=== PATIENT | female | born 1970 | race Caucasian/White ===

== ENCOUNTER → 2019-06-04 09:25 | Outpatient (BNVA) | payer BC, SELFPAY | PROVIDERS: Family Provider Family Medicine; PCP Family Medicine; Visit Provider Family Medicine | DX: R22.1 Localized swelling, mass and lump, neck (principal) | CPT/HCPCS: 85025 ==

== ENCOUNTER 2019-06-22 13:43 | Outpatient (CLI) | payer BC, SELFPAY ==
--- NOTE | 2019-06-22 13:30 | US_ITS ---
WS: [id number] ULTRASOUND SOFT TISSUES LEFT neck HISTORY: neck mass COMPARISON: None available. TECHNIQUE: 2-D and color Doppler imaging is submitted. There are complex cystic masses in the LEFT neck to correspond to the palpable abnormalities. The lar gest measures 2.0 x 1.3 x 1.5 cm. There is some through transmission but there are also septations an d mildly thickened wall. No increased vascularity. Additional smaller cyst complex cyst. IMPRESSION: Cystic masses in the LEFT neck. These may be cystic lymph nodes. May also be associated with the sali vary glands although a connection is not identified. Recommend follow-up neck CT with IV contrast.
== END 2019-06-22 13:44 | disposition home or self-care (01) ==
LOC: RAD 13:48
PROVIDERS: Family Provider Family Medicine; PCP Family Medicine; Visit Provider Family Medicine
DX: R22.1 Localized swelling, mass and lump, neck (principal)
CPT/HCPCS: 76536

== ENCOUNTER 2019-07-02 08:40 | Outpatient (CLI) | payer BC, SELFPAY ==
--- NOTE | 2019-07-02 09:00 | CT_ITS ---
WS: [id number] CT NECK TECHNIQUE: Contrast-enhanced CT of the neck with coronal and sagittal reformatted images. CLINICAL INFORMATION: neck mass COMPARISON: CT and ultrasound June 22, 2019 DLP: 2298.[address] scans at [facility] use at least one of these dose optimization techniques: automat ed exposure control; mA and/or kV adjustment per patient size (includes targeted exams where dose is matched to clinical indication); or iterative reconstruction. FINDINGS: Palpable marker overlying the left parotid gland. Deep to the palpable marker is an intraparotid enha ncing lesion along the parotid tail which is new since 2011 measuring 1.5 x 1.2 x 2.1 CM. This lesion does not appear cystic and differential considerations include parotid adenoma or parotid neoplasm. Recommend ENT consultation for further evaluation. A few additional prominent intraparotid lymph nodes. Submandibular glands appear normal. Enlarged left level 2/3 cervical lymph nodes measur ing up to 11 mm. A few prominent right-sided cervical lymph nodes although not pathologically enlarge d. Normal tongue base. Normal posterior nasopharynx. Thyroid gland is normal. Normal lung apices. No ev idence of supraglottic or glottic mass. Straightening of the normal cervical lordosis. Minimal spondy litic changes cervical spine. Paranasal sinuses and mastoid air cells well aerated. CT/CT neck w con* [id number] IMPRESSION: 1. Enhancing superficial left parotid lesion along the parotid tail measuring 1.5 x 1.2 x 2.1 CM. This does not appear cystic on this examination. Differenti al considerations include parotid adenoma or parotid neoplasm. Less likely this represents an asymmetrically enlarged intraparotid lymph node. Recommend ENT c onsultation for further evaluation 2. Additional slightly enlarged left cervical lymph nodes at level 2 and level 3. 3. No evidence of supraglottic or glottic mass. 4. Normal thyroid gland. 5. Normal tongue base.
[2019-07-02] MEDS: iohexol 300 mg/mL 100 mL Btl IV (09:38)
== END 2019-07-02 08:41 | disposition home or self-care (01) ==
LOC: RADWPI 08:46
PROVIDERS: Family Provider Family Medicine; PCP Family Medicine; Visit Provider Family Medicine
DX: R22.1 Localized swelling, mass and lump, neck (principal)
CPT/HCPCS: 70491; Q9967

== ENCOUNTER → 2019-12-27 09:46 | Outpatient (BNVA) | payer BC, SELFPAY | PROVIDERS: Family Provider Family Medicine; PCP Family Medicine; Visit Provider Nurse Practitioner Family | DX: Z11.59 Encounter for screening for other viral diseases (principal); Z20.828 Contact with and (suspected) exposure to other viral communicable diseases; J06.9 Acute upper respiratory infection, unspecified | CPT/HCPCS: 87635 ==

== ENCOUNTER → 2020-07-16 09:55 | Outpatient (BNVA) | payer BC, SELFPAY | PROVIDERS: Family Provider Family Medicine; PCP Family Medicine; Visit Provider Family Medicine | DX: N93.8 Other specified abnormal uterine and vaginal bleeding (principal) | CPT/HCPCS: 85025 ==

== ENCOUNTER 2020-07-22 07:48 | Outpatient (CLI) | payer OTHER, SELFPAY ==
--- NOTE | 2020-07-22 08:00 | US_ITS ---
WS: [id number] ULTRASOUND PELVIS TECHNIQUE: Transabdominal and transvaginal. ULTRASOUND PELVIS TECHNIQUE: Transabdominal. CLINICAL INFORMATION: julian menopausal hemorrhage : No. FINDINGS: Uterus Orientation: Anteverted. Size: 9.5 cm x 6.4 cm x 5.1 cm. Masses: None. Cervix: 3.2 cm. Endometrium: Thickened Endometrium thickness: 2.3 cm. Adnexa: Left ovary not visualized Right ovary size: 2.5 cm x 1.1 cm x 1.0 cm. Right ovary volume: 1.5 ccm3. Free fluid: None. Other findings: None. US/US pelvic with transvaginal IMPRESSION: 1. Normal uterus. Thickened endometrium measuring 22.8 mm. This is thickened f or a perimenopausal patient and recommend further evaluation with hysteroscopy to exclude hyperplasia or neoplasia 2. Normal right ovary. Left ovary not visualized. 3. No fluid in the cul-de-sac. 4. No adnexal masses.
== END 2020-07-22 07:49 | disposition home or self-care (01) ==
PROVIDERS: PCP Family Medicine; Visit Provider Family Medicine
DX: N93.8 Other specified abnormal uterine and vaginal bleeding (principal)
CPT/HCPCS: 76830; 76856

== ENCOUNTER → 2020-07-28 15:20 | Outpatient (BNVA) | payer OTHER, SELFPAY | PROVIDERS: PCP Family Medicine; Visit Provider Obstetrics & Gynecology | DX: N93.8 Other specified abnormal uterine and vaginal bleeding (principal); Z12.4 Encounter for screening for malignant neoplasm of cervix | CPT/HCPCS: 88175; 88305 ==

== ENCOUNTER → 2021-04-16 11:08 | Outpatient (BNVA) | payer OTHER, SELFPAY | PROVIDERS: PCP Family Medicine; Visit Provider Family Medicine | DX: N93.8 Other specified abnormal uterine and vaginal bleeding (principal); I10 Essential (primary) hypertension; Z12.31 Encounter for screening mammogram for malignant neoplasm of breast; Z00.00 Encounter for general adult medical examination without abnormal findings; M72.2 Plantar fascial fibromatosis | CPT/HCPCS: 80053; 80061; 85025 ==

== ENCOUNTER 2021-07-14 14:18 | Outpatient (CLI) | payer OTHER, SELFPAY ==
--- NOTE | 2021-07-14 14:58 | MM_ITS ---
WS: [id number] BILATERAL 3D TOMOSYNTHESIS DIGITAL SCREENING MAMMOGRAPHY WITH CAD CLINICAL INFORMATION: SCREENING HISTORY: Screening mammogram. No current complaints. COMPARISON: 3 16,018 TECHNIQUE: Bilateral CC and MLO views. FINDINGS: The breasts are composed of heterogeneous fibroglandular density tissue, which can limit the detectio n of small underlying mass lesions. Stable dystrophic calcifications LEFT breast. No suspicious mass, asymmetry, calcifications, or architectural distortion. No evidence of malignancy. MM/[place] [address] IMPRESSION: BI-RADS: 2-Benign FOLLOW UP: 1 Year Follow-up Recommend return to annual screening mammography.
== END 2021-07-14 14:19 | disposition home or self-care (01) ==
LOC: RADSHAW 14:26
PROVIDERS: PCP Family Medicine; Visit Provider Family Medicine
DX: Z12.31 Encounter for screening mammogram for malignant neoplasm of breast (principal)
CPT/HCPCS: 77063; 77067

== ENCOUNTER → 2022-01-13 13:03 | Outpatient (BNVA) | payer OTHER, SELFPAY | PROVIDERS: PCP Family Medicine; Visit Provider Podiatrist Foot & Ankle Surgery | DX: G57.51 Tarsal tunnel syndrome, right lower limb (principal) | CPT/HCPCS: 73630 ==

== ENCOUNTER → 2022-07-19 10:56 | Outpatient (BNVA) | payer OTHER, SELFPAY | PROVIDERS: PCP Family Medicine; Visit Provider Family Medicine | DX: R07.89 Other chest pain (principal); I10 Essential (primary) hypertension; E03.9 Hypothyroidism, unspecified; N95.9 Unspecified menopausal and perimenopausal disorder | CPT/HCPCS: 80053; 84443; 84484; 85025 ==

== ENCOUNTER → 2024-03-29 09:51 | Outpatient (BNVA) | payer OTHER, SELFPAY | PROVIDERS: PCP Family Medicine; Visit Provider Family Medicine | DX: I10 Essential (primary) hypertension (principal); E03.9 Hypothyroidism, unspecified; R05.3 Chronic cough; E78.00 Pure hypercholesterolemia, unspecified | CPT/HCPCS: 80053; 80061; 84443; 85025 ==

== ENCOUNTER 2024-05-28 16:10 | Outpatient (CLI) | payer OTHER, SELFPAY ==
--- NOTE | 2024-05-28 16:15 | USR_ITS ---
PROCEDURE INFORMATION: Exam: US Pelvis, Complete, Non-Obstetric Exam date and time: 05/28/2024 4:14 PM Age: 53 years old Clinical indication: Menstruation abnormalities; Irregular menstruation; Additional info: Continued bleeding p evaluation 05/24/24, no pa needed for either codes, ref number [id number] TECHNIQUE: Imaging protocol: Transabdominal pelvic nonobstetric ultrasound. Complete exam. Real time ultrasound with image documentation. COMPARISON: US pelv w/transvag [id number] 07/22/2020 8:22 AM FINDINGS: Uterus: The uterus is enlarged and demonstrates heterogenous myometrial echotexture. Measurements of the uterus are 11.3 x 5.2 x 6.9 cm. Endometrial stripe is measured up to 1.9 cm and is within top-normal range for the patient's demographic. Nabothian cysts are noted. Right ovary/adnexa: The right ovary is not well visualized. Left ovary/adnexa: The left ovary is not well visualized. Intraperitoneal space: No intraperitoneal fluid. Urinary bladder: Normal. US/US pelv w/transvag [id number] IMPRESSION: 1. Enlarged and heterogenous uterus which can be seen in the setting of endometriosis versus the physiologic appearance of menstruation. Correlate clinically. Consider follow up with pelvic MRI as clinically indicated. 2. Although the endometrial stripe is thickened in the setting of a menstruating female consider follow up with hysteroscopy to exclude hyperplasia or neoplasia.
== END 2024-05-28 16:11 | disposition home or self-care (01) ==
LOC: RAD 16:10
PROVIDERS: PCP Family Medicine; Visit Provider Family Medicine
DX: N93.8 Other specified abnormal uterine and vaginal bleeding (principal); N95.0 Postmenopausal bleeding; R93.89 Abnormal findings on diagnostic imaging of other specified body structures; N88.8 Other specified noninflammatory disorders of cervix uteri
CPT/HCPCS: 76830; 76856; 80053; 85025

== ENCOUNTER 2024-05-31 08:49 | Day surgery (SDC) | payer OTHER, SELFPAY ==
[2024-05-31] VITALS (10 sets, daily range): BP systolic 124–153; BP diastolic 78–92; PULSE 65–87; RESP 16–17; TEMP 36.2–36.3; O2SAT 95–100; BMI 39.4
[2024-05-31] MEDS: scopolamine 1 mg PATCH 1 PATCH TRANSDERMA (09:16)
[2024-05-31] MEDS: sodium chloride 0.9% 1,000 ML 30 ML IV (09:16)
--- NOTE | 2024-05-31 09:17 | P.ANESASSM_ITS ---
Pre-Anesthetic Assessment Height/Weight: Height 1.68 m Weight 110.677 kg O2 Del Method Room Air 05/31/24 09:04 Preop Diagnosis: abnormal uterine bleeding Operation Date: 05/31/24 10:50 Proposed Procedures p Hysteroscopy w/ Endometrial Sampling 35704, N93.8(Not Applicable) - Kiel Cash MD s Poylpectomy(Not Applicable) - Kiel Cash MD Familial anesthetic complications: PONV Was Beta Shayne taken within 24 hours: N/A Was Clonidine taken within 24 hours: N/A Last intake: Intake Last Liquid Date 05/30/24 Last Liquid Time 21:00 Last Solid Date 05/30/24 Last Solid Time 21:00 Social No alcohol and No tobacco Exam alert, oriented x 3, clear to auscultation bilaterally and regular rate & rhythm Airway Mallampati: Class II Dentition: full CV/HEM Hypertension Anesthetic Plan ASA status: 2 Anesthesia: General Risk of > 500 ml blood loss (7ml/kg in children): No Medications/Allergies Home Medications ?Medication ?Instructions ?Recorded ?Confirmed ?Last Taken ?Type vitamins B1 B6 B12 oral liquid 1 ml PO DAILY 07/28/20 05/31/24 Unknown History ibuprofen 400 mg tablet (IBU) 400 mg PO TID 09/23/21 0 05/31/24 Unknown History hydrochlorothiazide 25 mg tablet 25 mg PO DAILY #90 ta bs 11/22/23 05/31/24 05/30/24 Rx medroxyprogesterone 10 mg tablet 10 mg PO DAILY 10 day s #10 tabs 05/24/24 05/31/24 05/30/24 Rx ferrous sulfate 325 mg (65 mg 325 mg PO DAILY 05/31/24 05/31/24 05/30/24 History iron) tablet (iron) Allergies Allergy/AdvReac Type Severity Reaction Status Date / Time No Known Allergies Allergy Verified 05/30/24 13:50 [facility] Anesthesia Medical History Tension headache, chronic Family History Sister Anesthesia complication Hyperlipidemia Hypertension Thyroid disease Ovarian cyst Father Anesthesia complication Cancer brain cancer Hypertension Stroke Family/Other Cancer Paternal uncle Hyperlipidemia Maternal and Paternal Aunts and Uncles Hypertension Maternal and Paternal Aunts and Uncles Mother Chronic kidney disease (CKD) Grandmother Stroke Paternal Denies family history of Diabetes CAD (coronary artery disease) Clotting disorder Bleeding disorder Social History Smoking and tobacco/nicotine status: never used tobacco/nicotine Alcohol intake: never Substance/Drug Use: never Female Reproductive History Date of last menstrual period: 05/31/24 Data Anesthesia Cardiac Studies: No Data to Display
--- NOTE | 2024-05-31 09:49 | W.PM.OPSUD ---
Surgery/Procedure H&P Update DATE OF PROCEDURE: May 31, 2024 DATE H&P PERFORMED: 05/30/24 H&P UPDATE INFORMATION: I have reviewed H&P completed within last 30 days, I have examined patient prior to procedure and No changes to prior documentation PREOP DIAGNOSIS: abnormal uterine bleeding PLANNED PROCEDURE: Operation Date: 05/31/24 10:50 Proposed Procedures p Hysteroscopy w/ Endometrial Sampling 28019, N93.8(Not Applicable) - Kiel Cash MD s Poylpectomy(Not Applicable) - Kiel Cash MD
--- NOTE | 2024-05-31 10:45 | P.OP_ITS ---
Operative Report Date of procedure: May 31, 2024 Pre-op diagnosis: abnormal uterine bleeding Post-op diagnosis: same Post-op findings: normal endometrial cavity No polyps / fibroids moderate endometrial tissue Procedure done: hysteroscopy Curettage of uterus Implants: none Specimens removed/disposition: endometrial curettings, sent to pathology Surgeon: Kiel Cash MD Anesthesia: MAC Estimated blood loss (mL): 0 Complications: none Findings: normal endometrial cavity No polyps / fibroids moderate endometrial tissue Condition: stable Disposition: PACU Brief History: 53 y.o. with abnormal uterine bleeding Procedure: Informed consent signed. Patient was taken to the operating room. Anesthesia was induced. Patient was placed in dorsolithotomy position, prepped and draped for hysteroscopy. A bivalve speculum was placed in the vagina. The anterior lip of the cervix was grasped with a sharp-toothed tenaculum. The cervix was serially dilated with Hegar dilators. . A hysteroscope was placed into the endometrial cavity. The endometrial cavity was seen to be normal. There were no polyps or fibroids. T here was a moderate amount of endometrial tissue. The hysteroscope was then removed. Endometrial curettage was done with a sharp curette. Endometrial tissue was sent to pathology. The sharp-toothed tenaculum was removed. There was no bleeding from the endometrial cavity or cervix. The patient was then placed supine and awakened and taken to the PACU. Postop condition: stable EBL: none Sponge and instruments counts were normal x 2 Complications: none
--- NOTE | 2024-05-31 11:15 | SUR.PHASEII ---
Patient states she has been feeling some shortness of breath since waking up in pacu. Her current O2 is 100% and HR 65. She states she has been feeling this way for a while due to her anemia and had labs drawn 05/28/24 resulting with 10.9 hgb. She states she does not have any chest pain.
[2024-05-31 12:06] LABS: Hematocrit 29.1 % (36-47)
--- NOTE | 2024-05-31 12:28 | ECG_ITS ---
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 Measurements Intervals [place] Rate: 74 P: 57 TX: 188 QRS: 20 QRSD: 97 T: -17 QT: 387 QTc: 432 Interpretive Statements SINUS RHYTHM NONSPECIFIC T-WAVE ABNORMALITY Compared to ECG 08/09/2015 00:34:21 T-wave abnormality now present Electronically Signed On 06-01-2024 19:23:28 CDT by Marcelo Tijerina M.D. [email or web address] [email or web address]
--- NOTE | 2024-05-31 12:54 | ANE.PACU2 ---
Inpatient post-anesthesia follow up: Airway intact: Yes Vital signs: Temperature 97.2 F Pulse Rate 76 Respiratory Rate 17 Blood Pressure 124/78 Pulse Oximetry 98 Oxygen Delivery Me thod Room Air Oxygen Flow Rate Fraction of Inspir ed Oxygen Hydration adequate: Yes Nausea and vomiting: No Pain level: 1 Mental status: Baseline Additional Comments: Patient satting 100% on room air in no distress, but relays feeling short of breath. States this has been going on since before surgery and she's attributed it to anemia. No chest pain or other symptoms. EKG unremarkable. States she feels ready to go home.
--- NOTE | 2024-05-31 13:07 | SUR.PHASEII ---
Shortness of breath was reported to Dr. Cash by this nurse. He ordered another h&h to be drawn. It was drawn and resulted at 9.4. He came to see patient with Dr. Treadwell. EKG ordered by Dr. Treadwell. It came back NSR. Patients VS remained stable and WNL. Patient ok to d/c per Dr. Treadwell and Dr. Cash. Patient stated she was ready to go home. Advised her to return if she had worsening shortness of breath.
== END 2024-05-31 12:53 | disposition home or self-care (01) ==
PROVIDERS: PCP Family Medicine; Visit Provider Obstetrics & Gynecology
PROC: 0UJD8ZZ Inspection of Uterus and Cervix, Via Natural or Artificial Opening Endoscopic (ICD-10-PCS; CPT 58555; principal; 2024-05-31 10:40)
DX: N85.8 Other specified noninflammatory disorders of uterus (principal); N93.8 Other specified abnormal uterine and vaginal bleeding; I10 Essential (primary) hypertension; E78.5 Hyperlipidemia, unspecified; Z79.899 Other long term (current) drug therapy
CPT/HCPCS: 58558; 36415; 85014; 85018; 88305; 93005; J1100; J2250; J2405; J2704; J3010; J3490; J7030; J9999

== ENCOUNTER 2024-06-04 14:56 | Emergency (ER) | payer OTHER, SELFPAY ==
[2024-06-04 15:01] VITALS: BP 135/95; PULSE 103; TEMP 36.9; O2SAT 100; BMI 39.0
--- NOTE | 2024-06-04 15:14 | ECG_ITS ---
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: : 1970 Requested By: Sonny Ziegler Order Number: [id number] Reading MD: PSAQUALE UMANA Measurements Intervals [place] Rate: 94 P: 39 [place]: 157 QRS: 10 QRSD: 96 T: 1 QT: 340 QTc: 427 Interpretive Statements SINUS RHYTHM MINIMAL ST DEPRESSION [0.025+ mV ST DEPRESSION] INTERPRETATION BASED ON A DEFAULT AGE OF 40 YEARS Compared to ECG 05/31/2024 12:28:20 ST (T wave) deviation now present T-wave abnormality no longer present Electronically Signed On 06-04-2024 18:06:45 CDT by PASQUALE UMANA [id number]
--- NOTE | 2024-06-04 15:14 | XRR_ITS ---
PROCEDURE INFORMATION: Exam: XR Chest Exam date and time: 06/04/2024 3:29 PM Age: 53 years old Clinical indication: Shortness of breath; Additional info: SOB TECHNIQUE: Imaging protocol: Radiologic exam of the chest. Views: 1 view. COMPARISON: CT neck w con* [id number] 07/02/2019 9:36 AM FINDINGS: Lungs: Lungs are clear. Pleural spaces: There is no pleural effusion or pneumothorax. Heart/Mediastinum: Cardiomediastinal contours are unremarkable. Bones/joints: Bones are unremarkable. XR/XR chest 1V portable [id number] IMPRESSION: No acute findings.
--- NOTE | 2024-06-04 15:15 | CTR_ITS ---
PROCEDURE INFORMATION: Exam: CTA Chest With Contrast Exam date and time: 06/04/2024 3:34 PM Age: 53 years old Clinical indication: Shortness of breath; Additional info: SOB TECHNIQUE: Imaging protocol: Computed tomographic angiography of the chest with contrast. Exam focused on the arteries. 3D rendering (Not supervised by radiologist): MIP and/or 3D reconstructed images were created by the technologist. Radiation optimization: All CT scans at this facility use at least one of these dose optimization techniques: automated exposure control; mA and/or kV adjustment per patient size (includes targeted exams where dose is matched to clinical indication); or iterative reconstruction. Contrast material: OMNI 350; Contrast volume: 100 ml; Contrast route: INTRAVENOUS (IV); COMPARISON: CR XR chest 1V portable [id number] 06/04/2024 3:29 PM RADIATION DOSE METRICS: Total DLP (mGy-cm): 363.4 FINDINGS: Pulmonary arteries: The pulmonary arteries are adequately opacified for evaluation to the subsegmental level. There is no filling defect to suggest embolism. Aorta: The aorta is unremarkable. There is no aneurysm. Lungs: There is no consolidation. Pleural spaces: There is no pleural effusion or pneumothorax. Heart: Heart size is normal. There is no pericardial effusion. Lymph nodes: There is no mediastinal or hilar lymphadenopathy. Diaphragm: There is a small sliding-type hiatal hernia. Liver: There is diffuse low-attenuation of the liver relative to the spleen consistent with fatty infiltration. Bones/joints: Bones are unremarkable. Soft tissues: The extrathoracic soft tissues are unremarkable. CT/CT angio chest PE protcl [id number] IMPRESSION: 1. No pulmonary embolism. 2. Severe hepatic steatosis.
--- NOTE | 2024-06-04 15:15 | ED_ITS ---
HPI - SOB/Dyspnea 2 General: Chief Complaint: Shortness of Breath/Dyspnea Stated Complaint: MARKIE Torres Time Seen by Provider: 06/04/24 15:12 Source: patient Mode of arrival: ambulatory Limitations: no limitations History of Present Illness: HPI Narrative: 53-year-old female states that she has b een feeling short of breath over the last 2 to 3 weeks. She states she had a D&C last week and her dyspnea has been worsening. She denies any cough or fever she has no history of COPD or CHF she denies any chest pain. Associated symptoms: Deny abdominal pain, chest pain, fever(s), nausea or vomiting Related Data Home Medications ?Medication ?Instructions ?Recorded ?Confirmed vitamins B1 B6 B12 oral liquid 1 ml PO DAILY 07/28/20 06/04/24 ibuprofen 400 mg tablet (IBU) 400 mg PO TID 09/23/21 0 06/04/24 ferrous sulfate 325 mg (65 mg 325 mg PO DAILY 05/31/24 06/04/24 iron) tablet (iron) losartan 50 mg tablet 50 mg PO DAILY 06/04/2405/19 Previous Rx's ?Medication ?Instructions ?Recorded hydrochlorothiazide 25 mg tablet 25 mg PO DAILY #90 ta bs 11/22/23 norethindrone 1.5 mg-ethinyl 1 tab PO DAILY #84 tabs 0 05/31/24 estradiol 30 mcg(21)/iron 75 mg(7) tablet (Junel FE .08/17 (28)) Allergies Allergy/AdvReac Type Severity Reaction Status Date / Time No Known Allergies Allergy Verified 06/04/24 14:27 Review of Systems 2 Const: Denies: fever(s), chills, body aches or change in appetite ENMT: Denies: throat pain or dental pain Card: Denies: chest pain Resp: Reports: dyspnea GI: Denies: abdominal pain, nausea, vomiting or diarrhea Musc: Denies: neck pain or back pain Skin/Breast: Denies: rash Neuro: Denies: headache(s) PFSH ED 2 PFSH: Medical History Tension headache, chronic Family History Sister Anesthesia complication Hyperlipidemia Hypertension Thyroid disease Ovarian cyst Father Anesthesia complication Cancer brain cancer Hypertension Stroke Family/Other Cancer Paternal uncle Hyperlipidemia Maternal and Paternal Aunts and Uncles Hypertension Maternal and Paternal Aunts and Uncles Mother Chronic kidney disease (CKD) Grandmother Stroke Paternal Denies family history of Diabetes CAD (coronary artery disease) Clotting disorder Bleeding disorder Social History Smoking and tobacco/nicotine status: never used tobacco/nicotine Alcohol intake: never Substance/Drug Use: never Physical Exam 2 Const: COMMON NORMALS: no acute distress, patient oriented x3 and healthy appearing HENMT: COMMON NORMALS: normocephalic and atraumatic HEAD & SCALP: n ormocephalic and atraumatic Eye: COMMON NORMALS: conjunctivae normal CONJUNCTIVA: Yes conjunctivae normal Neck/C-Spine: COMMON NORMALS: full ROM and supple Chest: COMMONS NORMALS: normal inspection of the chest Resp: COMMON NORMALS: normal respiratory effort, No retractions, No use of accessory muscles and clear to auscultation bilaterally AUSCULTATION: clear to auscultation bilaterally Cardio: COMMON NORMALS: regular rate, regular rhythm and No murmurs present (Cardio) RATE: regular rate RHYTHM: regular rhythm Extremity: COMMON NORMALS: normal to inspection and full ROM Neuro: COMMON NORMALS: patient oriented x3, moves all extremities and no focal motor deficits Psych: COMMON NORMALS: mental status grossly normal, Normal thought process present and cooperative THOUGHT PROCESS: Normal thought process present Skin: COMMON NORMALS: no rashes or lesions noted and no wounds GENERAL SKIN EXAM: no rashes or lesions noted Course 2 Vital Signs: Vital signs: Vital Signs Temperature 98.5 F 06/04/24 15:01 Pulse Rate 88 06/04/24 15:54 Respiratory Rate 19 H 06/04/24 15:54 Blood Pressure 125/74 06/04/24 15:54 Pulse Oximetry 100 06/04/24 15:54 Oxygen Delivery Me thod Room Air 06/04/24 15:54 MDM - SOB/Dyspnea Medical Decision Making Patient presents here with shortness of breath she has been well-appearing here in no distress pulse ox has been normal imaging blood works normal no signs of cardiac cause no signs of pulmonary embolism or pneumonia she stable for discharge follow-up with PCP return if worsening. Medical Records I reviewed the patient's medical records. Lab Data I reviewed the patient's lab results. 06/04/24 15:19 06/04/24 15:19 Labs/Radiology: Radiology Impressions Chest X-Ray 06/04/24 15:14 IMPRESSION: No acute findings. Chest CTA 06/04/24 15:15 IMPRESSION: 1. No pulmonary embolism. 2. Severe hepatic steatosis. Laboratory Results WBC 7.33 10^3/uL (3.29-11.43) 06/04/24 15:19 RBC 3.50 10^6/uL (3.85-5.65) L 06/04/24 15:19 Hgb 10.40 g/dL (11.27-16.99) L 06/04/24 15:19 Hct 32.0 % (36-47) L 06/04/24 15:19 MCV 91.4 fl (85-98) 06/04/24 15:19 MCH 29.7 pg (27-33) 06/04/24 15:19 MCHC 32.5 g/dL (30-55) 06/04/24 15:19 RDW 14.4 % (12.1-15.1) 06/04/24 15:19 Plt Count 328 10^3/cmm (157-399) 06/04/24 15:19 MPV 11.2 fL (7.4-10.4) H 06/04/24 15:19 Neut % (Auto) 71.9 % 06/04/24 15:19 Lymph % (Auto) 18.3 % 06/04/24 15:19 Carver % (Auto) 7.2 % 06/04/24 15:19 Eos % (Auto) 1.5 % 06/04/24 15:19 Baso % (Auto) 0.7 % 06/04/24 15:19 Neut # (Auto) 5.27 10^3/uL (1.8-7.7) 06/04/24 15:19 Lymph # (Auto) 1.3 10^3/uL (0.8-4.8) 06/04/24 15:19 Carver # (Auto) 0.5 10^3/uL (0.2-0.9) 06/04/24 15:19 Eos # (Auto) 0.1 10^3/uL (0.0-0.8) 06/04/24 15:19 Baso # (Auto) 0.1 10^3/uL (0.0-0.1) 06/04/24 15:19 Nucleated RBC % (auto) 0 % 06/04/24 15: Nucleated RBCs # 0.0 /100WBC 06/04/24 15:19 PT 11.80 SECONDS (12.1-14.9) L 06/04/24 15:19 INR 0.81 (0.8-1.2) 06/04/24 15:19 Sodium 139 mmol/L (136-145) 06/04/24 15:19 Potassium 3.7 mmol/L (3.5-5.1) 06/04/24 15:19 Chloride 102 mmol/L (98-107) 06/04/24 15:19 Carbon Dioxide 26 mmol/L (22-29) 06/04/24 15:19 Anion Gap 14.7 (5-19) 06/04/24 15:19 BUN 9 mg/dL (6-20) 06/04/24 15:19 Creatinine 0.9 mg/dL (0.5-0.9) 06/04/24 15:19 GFR Calculation 65.5 mL/min (90-130) L 06/04/24 15:19 Glucose 155 mg/dL (65-115) H 06/04/24 15:19 Calculated Osmolality 290 mOsm/kg (285-295) 06/04/24 15:19 Calcium 9.3 mg/dL (8.5-10.5) 06/04/24 15:19 Total Bilirubin 0.2 mg/dL (0.15-1.2) 06/04/24 15:19 AST 21 U/L (0-32) 06/04/24 15:19 ALT 26 U/L (0-33) 06/04/24 15:19 Alkaline Phosphatase 64 U/L (35-105) 06/04/24 15:19 Troponin T Baseline < 6 ng/L (0-10) 06/04/24 15:19 NT-Pro-B Natriuret Pep 55 pg/mL (0-125) 06/04/24 15:19 Total Protein 7.1 g/dL (6.6-8.7) 06/04/24 15:19 Albumin 4.5 g/dL (3.5-5.2) 06/04/24 15:19 Globulin 2.6 g/dL (1.3-4.6) 06/04/24 15:19 Influenza A (PCR) Negative (Negative) 06/04/24 15:50 Influenza Type B (PCR) Negative (Negative) 06/04/24 15:50 RSV (PCR) Negative (Negative) 06/04/24 15:50 SARS-CoV-2 (PCR) Negative (Negative) 06/04/24 15:50 All radiology interpretation(s) finalized by discharge Discharge Plan Discharge Patient Disposition: Home Clinical Impression: Shortness of breath Condition: Stable Prescriptions: No Action vitamins B1 B6 B12 Liquid 1 ml PO DAILY ibuprofen [IBU] 400 mg tablet 400 mg PO TID hydrochlorothiazide 25 mg tablet 25 mg PO DAILY Qty: 90 3RF losartan 50 mg tablet 50 mg PO DAILY ferrous sulfate [iron] 325 mg (65 mg iron) Tablet 325 mg PO DAILY norethindrone-e.estradiol-iron [Junel FE 1.5/30 (28)] 1.5 mg-30 mcg (21)/75 mg (7) tablet 1 tab PO DAILY Qty: 84 1RF Discharge Orders: Discharge ED (Routine); Ordered 06/04/24 Ordered By: Sonny Ziegler Referrals: Sam Bean MD [Primary Care Provider] - 4-7 days Discharge Diet: Advance as tolerated Discharge Activity: Resume usual activity Patient Instructions: Shortness of Breath (ED) Print Language: Barbadian Coding Level of Care Code ED Senior Design Engineer for Zack Gaffney
[2024-06-04] MEDS: iohexol 350 mg/mL 500 mL Btl (per mL) IV (15:46)
[2024-06-04 15:50] LABS: Basophils # 0.1 10^3/uL (0.0-0.1); Basophils % 0.7 %; Eosinophils # 0.1 10^3/uL (0.0-0.8); Eosinophils % 1.5 %; Lymphocytes # 1.3 10^3/uL (0.8-4.8); Lymphocytes % 18.3 %; Mean Corpuscular HGB Conc 32.5 g/dL (30-55); Mean Corpuscular Hemoglobin 29.7 pg (27-33); Mean Corpuscular Volume 91.4 fl (85-98); Mean Platelet Volume 11.2 fL (7.4-10.4); Monocytes # 0.5 10^3/uL (0.2-0.9); Monocytes % 7.2 %; Neutrophils # 5.27 10^3/uL (1.8-7.7); Neutrophils % 71.9 %; Nucleated Red Blood Cells % 0 %; Platelet Count 328 10^3/cmm (157-399); Red Cell Distribution Width 14.4 % (12.1-15.1); White Blood Count 7.33 10^3/uL (3.29-11.43)
[2024-06-04 15:54] VITALS: BP 125/74; PULSE 88; RESP 19; O2SAT 100
[2024-06-04 16:02] LABS: INR 0.81 (0.8-1.2)
[2024-06-04 16:13] LABS: Slide Review Slide Review Perform; Troponin(5th) Baseline < 6 ng/L (0-10)
[2024-06-04 16:31] LABS: Alanine Aminotransferase 26 U/L (0-33); Albumin Level 4.5 g/dL (3.5-5.2); Alkaline Phosphatase 64 U/L (35-105); Anion Gap 14.7 (5-19); Aspartate Amino Transferase 21 U/L (0-32); Blood Urea Nitrogen 9 mg/dL (6-20); Calcium 9.3 mg/dL (8.5-10.5); Carbon Dioxide 26 mmol/L (22-29); Chloride 102 mmol/L (98-107); Creatinine Clr Calc Pharmacy 90.7115; Globulin 2.6 g/dL (1.3-4.6); Glomerular Filtration Rate 65.5 mL/min (90-130); Glucose 155 mg/dL (65-115); NT Pro B Type Natriuretic Pept 55 pg/mL (0-125); Osmolality Calculated 290 mOsm/kg (285-295); Potassium 3.7 mmol/L (3.5-5.1); Sodium 139 mmol/L (136-145); Total Bilirubin 0.2 mg/dL (0.15-1.2); Total Protein 7.1 g/dL (6.6-8.7)
[2024-06-04 16:34] LABS: Influenza A NEGATIVE (Negative); Influenza B NEGATIVE (Negative); Respiratory Syncytial Virus Ce NEGATIVE (Negative); SARS-CoV-2 PCR NEGATIVE (Negative)
[2024-06-04 17:03] VITALS: BP 114/72; PULSE 78; O2SAT 99
== END 2024-06-04 17:07 | disposition home or self-care (01) ==
PROVIDERS: Family Medicine; Emergency Provider Emergency Medicine; PCP Family Medicine
DX: R06.02 Shortness of breath (principal); Z11.52 Encounter for screening for COVID-19
CPT/HCPCS: 71045; 71275; 80053; 83880; 84484; 85025; 85610; 87637; 93005; 99285

== ENCOUNTER 2024-06-11 08:32 | Emergency (ER) | payer OTHER, SELFPAY ==
[2024-06-11 08:38] VITALS: BP 152/89; PULSE 85; RESP 19; TEMP 36.4; O2SAT 100; BMI 38.7
--- NOTE | 2024-06-11 08:42 | XR_ITS ---
WS: [id number] Exam: XR chest 1V portable [id number] Date/Time of Exam: 06/11/2024 9:00 AM Reason For Exam: dyspnea/cough Comparison 06/04/2024. The lungs are fully inflated and clear. Normal cardiomediastinal silhouette and regional bony elements. No pleural effusion. XR/XR chest 1V portable [id number] IMPRESSION: 1. Negative chest.
--- NOTE | 2024-06-11 08:43 | ECG_ITS ---
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 Measurements Intervals [place] Rate: 86 P: 60 [place]: 177 QRS: 45 QRSD: 94 T: 31 QT: 362 QTc: 435 Interpretive Statements SINUS RHYTHM NONSPECIFIC T-WAVE ABNORMALITY INTERPRETATION BASED ON A DEFAULT AGE OF 40 YEARS Compared to ECG 06/04/2024 15:05:36 T-wave abnormality now present ST (T wave) deviation no longer present Electronically Signed On 06-11-2024 21:02:23 CDT by Lolly Adams M.D. [id number]
--- NOTE | 2024-06-11 08:57 | ED_ITS ---
HPI - Chest Pain 2 General: Chief Complaint: Chest Pain Stated Complaint: sob, cp Time Seen by Provider: 06/11/24 08:42 History of Present Illness: 53-year-old female presents emergency [facility] clinic chest pain shortness of breath. Has been intermittently going on for over a year. She has no known cardiac history. She has been evaluated before had normal troponins and a CTA that was negative. She not had any fever sweats or chills or productive cough. On arrival here to see the patient she is hyperventilating. She has not noticed anything that exacerbates or relieves the chest discomfort usually resolves on its own over time. Previous ER note reviewed including lab work and CTA that was done at that visit. She has not previously had any cardiac evaluation such as a stress test or echo. She is chronically anemic. Associated symptoms: Reports dyspnea; Deny abdominal pain or fever(s) Related Data Home Medications ?Medication ?Instructions ?Recorded ?Confirmed ibuprofen 400 mg tablet (IBU) 400 mg PO TID 09/23/21 0 06/11/24 ferrous sulfate 325 mg (65 mg 325 mg PO DAILY 05/31/24 06/11/24 iron) tablet (iron) norethindrone 1.5 mg-ethinyl 1 tab PO DAILY 06/11/24 0 06/11/24 estradiol 30 mcg(21)/iron 75 mg(7) tablet (Joe Fe 1.5/30 (28)) Previous Rx's ?Medication ?Instructions ?Recorded hydrochlorothiazide 25 mg tablet 25 mg PO DAILY #90 ta bs 11/22/23 aspirin 81 mg tablet,delayed 81 mg PO DAILY #30 tabs 0 06/11/24 release buspirone 15 mg tablet 15 mg PO BID #30 tabs Allergies Allergy/AdvReac Type Severity Reaction Status Date / Time No Known Allergies Allergy Verified 06/11/24 13:34 Review of Systems 2 Const: Denies: fever(s) or chills Card: Reports: chest pain Resp: Reports: dyspnea GI: Denies: abdominal pain : Denies: dysuria, urinary frequency or urinary urgency Musc: Denies: neck pain or back pain Skin/Breast: Denies: rash PFSH ED 2 PFSH: Medical History Tension headache, chronic Family History Sister Anesthesia complication Hyperlipidemia Hypertension Thyroid disease Ovarian cyst Father Anesthesia complication Cancer brain cancer Hypertension Stroke Family/Other Cancer Paternal uncle Hyperlipidemia Maternal and Paternal Aunts and Uncles Hypertension Maternal and Paternal Aunts and Uncles Mother Chronic kidney disease (CKD) Grandmother Stroke Paternal Denies family history of Diabetes CAD (coronary artery disease) Clotting disorder Bleeding disorder Social History Smoking and tobacco/nicotine status: never used tobacco/nicotine Alcohol intake: never Substance/Drug Use: never Physical Exam 2 Const: GENERAL APPEARANCE: cooperative ORIENTATION/CONSCIOUSNESS: Yes awake, Yes oriented to person, Yes oriented to place and Yes oriented to time HENMT: COMMON NORMALS: normocephalic, atraumatic and hearing grossly normal bilaterally HEAD & SCALP: normocephalic and atraumatic Resp: COMMON NORMALS: normal respiratory effort, No retractions, No use of accessory muscles and clear to auscultation bilaterally EFFORT & INSPECTION: Yes tachypneic AUSCULTATION: clear to auscultation bilaterally Cardio: COMMON NORMALS: regular rate, regular rhythm and No murmurs present (Cardio) RATE: regular rate RHYTHM: regular rhythm GI: COMMON NORMALS: Soft to palpation and No hepatosplenomegaly present A USCULTATION: Yes normoactive bowel sounds PALPATION: Yes Soft to palpation, No Tenderness to palpation present (GI), No Guarding due to palpation present (GI) and Yes No hepatosplenomegaly present Extremity: COMMON NORMALS: normal to inspection, capillary refill normal, no clubbing, cyanosis or edema, no calf tenderness and no pedal edema Neuro: SENSORIUM/ORIENTATION: Yes oriented to person, Yes oriented to place and Yes oriented to time Skin: COMMON NORMALS: no rashes or lesions noted GENERAL SKIN EXAM: no rashes or lesions noted Course 2 Vital Signs: Vital signs: Vital Signs Temperature 97.6 F 06/11/24 08:38 Pulse Rate 80 06/11/24 12:09 Respiratory Rate 13 06/11/24 12:09 Blood Pressure 132/79 06/11/24 12:09 Pulse Oximetry 99 06/11/24 12:09 Oxygen Delivery Me thod Room Air 06/11/24 11:36 MDM - Chest Pain Medical Decision Making ABG shows hyperventilation syndrome was significantly elevated pH respiratory alkalosis. Cardiac enzymes negative EKG does not show any acute changes patient has normal pO2 CTA done recently was negative chest x-ray done today was normal. No sign of pneumothorax. Story is very atypical for acute coronary syndrome there is no pneumonia no widening of the mediastinum there was no evidence of any aneurysms on the previous CTA. No PE on previous CTA. Will set her up for an outpatient stress test. I am also going to start her on BuSpar 15 mg twice daily and have her follow-up with her primary care doctor within the week. Medical Records I reviewed the patient's medical records. Lab Data 06/11/24 08:56 06/11/24 08:56 Radiology Impressions Chest X-Ray 06/11/24 08:42 IMPRESSION: 1. Negative chest. Laboratory Results WBC 7.02 10^3/uL (3.29-11.43) 06/11/24 08:56 RBC 3.59 10^6/uL (3.85-5.65) L 06/11/24 08:56 Hgb 10.60 g/dL (11.27-16.99) L 06/11/24 08:56 Hct 32.2 % (36-47) L 06/11/24 08:56 MCV 89.7 fl (85-98) 06/11/24 08:56 MCH 29.5 pg (27-33) 06/11/24 08:56 MCHC 32.9 g/dL (30-55) 06/11/24 08:56 RDW 14.0 % (12.1-15.1) 06/11/24 08:56 Plt Count 391 10^3/cmm (157-399) 06/11/24 08:56 MPV 9.7 fL (7.4-10.4) 06/11/24 08:56 Neut % (Auto) 66.9 % 06/11/24 08:56 Lymph % (Auto) 25.9 % 06/11/24 08:56 Schleicher % (Auto) 4.4 % 06/11/24 08:56 Eos % (Auto) 1.6 % 06/11/24 08:56 Baso % (Auto) 0.9 % 06/11/24 08:56 Neut # (Auto) 4.70 10^3/uL (1.8-7.7) 06/11/24 08:56 Lymph # (Auto) 1.8 10^3/uL (0.8-4.8) 06/11/24 08:56 Schleicher # (Auto) 0.3 10^3/uL (0.2-0.9) 06/11/24 08:56 Eos # (Auto) 0.1 10^3/uL (0.0-0.8) 06/11/24 08:56 Baso # (Auto) 0.1 10^3/uL (0.0-0.1) 06/11/24 08:56 Nucleated RBC % (auto) 0 % 06/11/24 08:56 Nucleated RBCs # 0.0 /100WBC 06/11/24 08:56 Specimen Type Arterial 06/11/24 09:18 Sample Site Radial, left 06/11/24 09:18 ABG pH 7.58 (7.35-7.45) H* 06/11/24 09:18 ABG pCO2 23.0 mmHg (35-45) L 06/11/24 09:18 ABG pO2 106.0 mmHg (80.0-100.0) H 06/11/24 09:18 ABG PO2/FiO2 Ratio 504 06/11/24 09:18 ABG HCO3 21.5 mmol/L (22-26) L 06/11/24 09:18 ABG O2 Saturation > 99.1 06/11/24 09:18 ABG Base Excess 0.8 mmol/L (-2.0-2.0) 06/11/24 09:18 Giancarlo Test Pos 06/11/24 09:18 A-a O2 Gradient 1.6 mmHg (5-10) L 06/11/24 09:18 Hematocrit 34.3 % (37-47) L 06/11/24 09:18 Hgb O2 Saturation 97.2 % (95-100) 06/11/24 09:18 Carboxyhemoglobin 1.4 %THgb (0.4-20.1) 06/11/24 09:18 Methemoglobin 1.1 % (0.4-1.5) 06/11/24 09:18 Total Hemoglobin 11.2 g/dL (12-16) L 06/11/24 09:18 Sodium 139.0 mmol/L (131-143) 06/11/24 09:18 Potassium 3.1 mmol/L (3.5-5.0) L 06/11/24 09:18 Glucose 111.0 mg/dL (70-115) 06/11/24 09:18 Ionized Calcium 1.1 mmol/L (1.1-1.4) 06/11/24 09:18 O2 Delivery Device Room air 06/11/24 09:18 FiO2 21.0 % 06/11/24 09:18 Rubber Compounder ID Gd 06/11/24 09:18 Sodium 139 mmol/L (136-145) 06/11/24 08:56 Potassium 3.9 mmol/L (3.5-5.1) 06/11/24 08:56 Chloride 102 mmol/L (98-107) 06/11/24 08:56 Carbon Dioxide 22 mmol/L (22-29) 06/11/24 08:56 Anion Gap 18.9 (5-19) 06/11/24 08:56 BUN 10 mg/dL (6-20) 06/11/24 08:56 Creatinine 0.9 mg/dL (0.5-0.9) 06/11/24 08:56 GFR Calculation 65.5 mL/min (90-130) L 06/11/24 08:56 Glucose 114 mg/dL (65-115) 06/11/24 08:56 Calculated Osmolality 288 mOsm/kg (285-295) 06/11/24 08:56 Calcium 9.2 mg/dL (8.5-10.5) 06/11/24 08:56 Total Bilirubin 0.2 mg/dL (0.15-1.2) 06/11/24 08:56 AST 19 U/L (0-32) 06/11/24 08:56 ALT 26 U/L (0-33) 06/11/24 08:56 Alkaline Phosphatase 61 U/L (35-105) 06/11/24 08:56 Troponin T Baseline < 6 ng/L (0-10) 06/11/24 08:56 Troponin T 120 Minute 6.00 ng/L (0-10) 06/11/24 10:44 Delta Troponin T 0.80725 ABS# (0-10) 06/11/24 10:44 Total Protein 7.3 g/dL (6.6-8.7) 06/11/24 08:56 Albumin 4.4 g/dL (3.5-5.2) 06/11/24 08:56 Globulin 2.9 g/dL (1.3-4.6) 06/11/24 08:56 All radiology interpretation(s) finalized by discharge EKG Data EKG 1: Interpretation: EKG 844 normal sinus rhythm nonspecific ST changes no acute ST changes and rate 86 IN interval 177 Discharge Plan Discharge Patient Disposition: Home Clinical Impression: Atypical chest pain, Hyperventilation Condition: Stable Prescriptions: New aspirin 81 mg tablet,delayed release (DR/EC) 81 mg PO DAILY Qty: 30 0RF buspirone 15 mg tablet 15 mg PO BID Qty: 30 0RF Rx Instructions: Half tablet twice daily for 7 days then 1 tablet twice daily No Action ibuprofen [IBU] 400 mg tablet 400 mg PO TID hydrochlorothiazide 25 mg tablet 25 mg PO DAILY Qty: 90 3RF ferrous sulfate [iron] 325 mg (65 mg iron) Tablet 325 mg PO DAILY norethindrone-e.estradiol-iron [Joe Fe 1.5/30 (28)] 1.5 mg-30 mcg (21)/75 mg (7) tablet 1 tab PO DAILY Discharge Orders: Discharge ED (Routine); Ordered 06/11/24 Ordered By: Omi Roy Referrals: Sam Bean MD [Primary Care Provider] - Discharge Diet: Usual diet Discharge Activity: Limit activity as instructed Patient Instructions: Opioid Safety, Pain Management Activity Restrictions/Additional Instructions: Thank you for choosing [facility] for your healthcare needs today. It is very important that you follow up as instructed or that you return to the Emergency Department should you have concerns or if your condition changes or worsens in any way. You were seen in the emergency room with complaints of shortness of breath and chest discomfort your cardiac enzymes and EKG were normal chest x-ray did not show any acute abnormality no other clinically significant abnormalities on your other laboratory testing. Previously done CTA of the chest did not show any signs of pneumothorax pneumonia pulmonary embolism or dissecting aneurysms. You did show signs of hyperventilation both clinically and on the arterial blood gas that was done shortly after you arrived. Will recommend that you start taking a baby aspirin daily and set you up for an outpatient cardiac stress test. Additionally we will start you on BuSpar 7.5 mg (half tablet) twice a day for 7 days then 15 mg (1 full tablet) twice a day. Print Language: Nepali Coding Level of Care Code ED Set And Exhibit Designer for Zack Gaffney
[2024-06-11 09:04] LABS: Basophils # 0.1 10^3/uL (0.0-0.1); Basophils % 0.9 %; Eosinophils # 0.1 10^3/uL (0.0-0.8); Eosinophils % 1.6 %; Hematocrit 32.2 % (36-47); Lymphocytes # 1.8 10^3/uL (0.8-4.8); Lymphocytes % 25.9 %; Mean Corpuscular HGB Conc 32.9 g/dL (30-55); Mean Corpuscular Hemoglobin 29.5 pg (27-33); Mean Corpuscular Volume 89.7 fl (85-98); Mean Platelet Volume 9.7 fL (7.4-10.4); Monocytes # 0.3 10^3/uL (0.2-0.9); Monocytes % 4.4 %; Neutrophils % 66.9 %; Nucleated Red Blood Cells % 0 %; Platelet Count 391 10^3/cmm (157-399); Red Blood Count 3.59 10^6/uL (3.85-5.65); White Blood Count 7.02 10^3/uL (3.29-11.43)
[2024-06-11 09:20] LABS: Alanine Aminotransferase 26 U/L (0-33); Albumin Level 4.4 g/dL (3.5-5.2); Alkaline Phosphatase 61 U/L (35-105); Anion Gap 18.9 (5-19); Aspartate Amino Transferase 19 U/L (0-32); Blood Urea Nitrogen 10 mg/dL (6-20); Calcium 9.2 mg/dL (8.5-10.5); Carbon Dioxide 22 mmol/L (22-29); Chloride 102 mmol/L (98-107); Creatinine Clr Calc Pharmacy 90.2975; Globulin 2.9 g/dL (1.3-4.6); Glomerular Filtration Rate 65.5 mL/min (90-130); Glucose 114 mg/dL (65-115); Osmolality Calculated 288 mOsm/kg (285-295); Potassium 3.9 mmol/L (3.5-5.1); Sodium 139 mmol/L (136-145); Total Bilirubin 0.2 mg/dL (0.15-1.2); Total Protein 7.3 g/dL (6.6-8.7)
[2024-06-11 09:23] LABS: Troponin(5th) Baseline < 6 ng/L (0-10)
[2024-06-11 09:32] LABS: Alveolar-Arterial Oxygen Gradi 1.6 mmHg (5-10); Arterial Blood Gas Hematocrit 34.3 % (37-47); Base Excess ABG 0.8 mmol/L (-2.0-2.0); Blood Gas Allen Test Pos; Blood Gas Operator Identificat GD; Blood Gas Sample Site Radial, left; Blood Gas Sample Type Arterial; Carboxyhemoglobin 1.4 %THgb (0.4-20.1); HCO3 ABG 21.5 mmol/L (22-26); HGB O2 Sat 97.2 % (95-100); Ionized Calcium Level - ABG 1.1 mmol/L (1.1-1.4); Methemoglobin 1.1 % (0.4-1.5); Oxygen Device ROOM AIR; Oxygen Saturation ABG > 99.1; PO2 FiO2 Ratio Arterial Blood 504; Potassium Level - ABG 3.1 mmol/L (3.5-5.0); Total Hemoglobin 11.2 g/dL (12-16)
[2024-06-11 09:33] LABS: ABG PH Result 7.58 (7.35-7.45)
[2024-06-11] MEDS: LORazepam 2 mg Tablet PO (10:27)
[2024-06-11 10:29] VITALS: PULSE 78; RESP 18; O2SAT 100
--- NOTE | 2024-06-11 10:43 | ECG_ITS ---
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 Measurements Intervals [place] Rate: 77 P: 67 [place]: 191 QRS: 58 QRSD: 98 T: 34 QT: 375 QTc: 426 Interpretive Statements SINUS RHYTHM NONSPECIFIC T-WAVE ABNORMALITY Compared to ECG 06/11/2024 08:44:47 No significant changes Electronically Signed On 06-11-2024 21:11:23 CDT by Lolly Adams M.D. [email or web address]
[2024-06-11 11:15] LABS: Troponin 5 2HR Delta 0.00001 ABS# (0-10)
[2024-06-11 11:36] VITALS: BP 127/86; PULSE 91; O2SAT 95
[2024-06-11 12:09] VITALS: BP 132/79; PULSE 80; RESP 13; O2SAT 99
== END 2024-06-11 12:15 | disposition home or self-care (01) ==
PROVIDERS: Emergency Provider Family Medicine; PCP Family Medicine
DX: R07.89 Other chest pain (principal); R06.4 Hyperventilation
CPT/HCPCS: 36415; 36600; 71045; 80051; 80053; 82330; 82805; 84484; 85025; 93005; 99285; J9999

== ENCOUNTER 2024-06-18 07:14 | Outpatient (CLI) | payer OTHER, SELFPAY ==
--- NOTE | 2024-06-18 07:45 | USCV_ITS ---
Lisa Richardson Age: 53 Gender: F : 1970 Exam Date: 06/18/2024 07:34 Ordering Phys: Sam Bean MD Technologist: Exam [place] [facility] [place]: sob murmur BP: 130 / 80 HR: 75 Rhythm: Sinus Technical Quality: Adequate MEASUREMENTS (Male / Female) Normal Values 2D ECHO LV Diastolic Diameter PLAX 4.6 cm 4.2 - 5.9 / 3.9 - 5.3 cm IVS Diastolic Thickness 1.5 cm 0.6 - 1.0 / 0.6 - 0.9 cm IVS Systolic Thickness 1.7 cm LVPW Diastolic Thickness 1.3 cm 0.6 - 1.0 / 0.6 - 0.9 cm LVPW Systolic Thickness 1.7 cm LVOT Diameter 2.0 cm LV Ejection Fraction 2D Teich 55.5 % LV Ejection Fraction MOD 4C 59.7 % LV Ejection Fraction MOD 2C 63.6 % LV Ejection Fraction 2C AL 64.7 % LA Diameter 3.1 cm RA Systolic Volume 4C AL 36.8 ml RA Systolic Volume 4C MOD 34.7 ml LA Sys Volume AL 41.3 cm cubed LA Sys Volume Index AL 18.1 cm cubed/m squared Aorta at Sinotubular Diameter 2.8 cm M-MODE LA Ao Ratio MM 1.4 AV Cusp Separation MM 2.3 cm DOPPLER AV Peak Velocity 144.0 cm/s LVOT Peak Velocity 92.0 cm/s AV Area Cont Eq vti 2.5 cm squared AV Area Cont Eq pk 2.1 cm squared MV Peak Velocity 97.0 cm/s TR Peak Velocity 221.0 cm/s TR Peak Gradient 19.5 mmHg TV Peak E Velocity 81.0 cm/s PV Peak Velocity 136.0 cm/s FINDINGS Left Ventricle Left ventricle is normal in size. LV systolic function is normal with EF of 60 to 65%. No regional wall motion abnormalities are seen. Right Ventricle Normal in size and function Right Atrium Normal in size Left Atrium Normal in size Mitral Valve Structurally normal mitral valve. Mild mitral regurgitation. Aortic Valve Grossly normal. No significant stenosis or regurgitation. Tricuspid Valve Insufficient TR jet to calculate RVSP Pulmonic Valve Not well visualized Pericardium Normal Aorta Normal in size IVC Not visualized CONCLUSIONS LV systolic function is normal with EF of 60-65% Mild mitral regurgitation No comparison studies are available. Marcelo Tijerina MD (Electronically Signed) Final Date: 02 July 2024 13:51 S
== END 2024-06-18 07:15 | disposition home or self-care (01) ==
PROVIDERS: PCP Family Medicine; Visit Provider Family Medicine
DX: R06.02 Shortness of breath (principal); R06.4 Hyperventilation; R07.89 Other chest pain; I34.0 Nonrheumatic mitral (valve) insufficiency
CPT/HCPCS: 93306

== ENCOUNTER 2024-07-11 06:50 | Outpatient (CLI) | payer OTHER, SELFPAY | END 2024-07-11 06:51 | disposition home or self-care (01) | LOC: RT 06:51 | PROVIDERS: PCP Family Medicine; Visit Provider Family Medicine | DX: R06.4 Hyperventilation (principal) | CPT/HCPCS: 94010; 94726; 94729 ==

== ENCOUNTER 2024-07-12 07:11 | Outpatient (CLI) | payer OTHER, SELFPAY ==
[2024-07-12 07:37] VITALS: BMI 38.7
--- NOTE | 2024-07-12 07:37 | ECG_ITS ---
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 Interpretive Statements Intraprocedure shortess of breath; Symptoms resoled by discharge; Lung unchanged pre/post procedure PROCEDURE: At the baseline, the EKG revealed normal sinus rhythm with normal ST Ts. The baseline heart was 79 bpm with a blood pressue of 141/90 mm of Hg Lexiscan was infused over a period of 20 seconds. A total of 0.4 milligrams of Lexiscan was infused. The stress phase was continued for a total of 5 minutes. Heart rate at the end of the stress phase was 98 bpm with a blood pressure 141/71 mm of Hg. The EKG at the peak infusion revealed no significant changes. Sestamibi was injected 20 seconds after the Lexiscan infusion. Heart rate at the end of the recovery phase was 89 bpm with a blood pressure of 132/77 mm of Hg. CONCLUSION: 1. No significant EKG changes with the LexiScan infusion 2. No LexiScan induced chest pain or cardiac arrhythmia 3. Normal blood pressure and heart rate response 4. Sestamibi/sestamibi perfusion scan pending; see separate report. Electronically Signed On 07-12-2024 17:20:23 CDT by Lolly Adams M.D. [email or web address]
--- NOTE | 2024-07-12 07:37 | NMCV_ITS ---
NM melva perf SPECT r/s* [id number] Lisa Richardson Age: 53 Gender: F : 1970 Exam Date: 07/12/2024 08:15 Ordering Phys: Sam Bean MD Technologist: SANTIAGO Toscano Exam Location: [facility] Indications: CP STRESS TEST [facility] IMAGE PROTOCOL Rest/Stress 1 Lexiscan Day Radiopharmaceutical Dose (mCi) Administration Site Administered by Rest: Tc-99m 10.4 IV Carolee Holt, BROADCAST CORRESPONDENT Sestamibi Stress:Tc-99m 32.9 IV Carolee Jonathon, BROADCAST CORRESPONDENT Sestamibi Rest: 07/12/2024 60 Discovery 630 Stress: 07/12/2024 30 Discovery 630 0.4mg Lexiscan. Images obtained in supine and prone position. SPECT RESULTS Technical Quality: Good Raw Data Analysis: Normal Image Corrections: No attenuation or motion correction applied Summed Stress Score: 3 Summed Rest Score: 4 Summed Difference Score: 0 PERFUSION FINDINGS Small area of minimal to moderately decreased tracer uptake involving the mid inferolateral and apical lateral segments. No significant reversibility was noted in these regions. FUNCTIONAL RESULTS (calculated via Gated SPECT) Stress Image LV EF (%): 66 Stress EDV (mL):105 TID: 0.92 Stress ESV (mL):36 FUNCTIONAL FINDINGS: Segmental wall motion analysis revealing no gross wall motion abnormalities IMPRESSIONS 1. Myocardial perfusion imaging revealing small area of persistent decreased tracer uptake involving the inferolateral and apical lateral regions suggesting myocardial scarring versus attenuation artifact 2. Normal LV ejection fraction of 66%. 3. LV wall motion analysis revealing no gross wall motion abnormalities. 4. Normal LV volume Low probability for coronary ischemia, based on the above findings Dr Lolly Adams MD [facility] (Electronically Signed) Final Date: 12 July 2024 14:00 S
[2024-07-12] MEDS: regadenoson 0.4 Mg/5 ml Syringe IVP (08:39)
[2024-07-12 08:51] VITALS: BP 132/77; PULSE 89
== END 2024-07-12 07:12 | disposition home or self-care (01) ==
LOC: CDL 07:12
PROVIDERS: PCP Family Medicine; Visit Provider Family Medicine
DX: R07.9 Chest pain, unspecified (principal); R93.1 Abnormal findings on diagnostic imaging of heart and coronary circulation
CPT/HCPCS: 36415; 78452; 93017; 96374; A9500; J2785

== ENCOUNTER → 2024-07-19 12:00 | Outpatient (BNVA) | payer OTHER, SELFPAY | PROVIDERS: PCP Family Medicine; Visit Provider Family Medicine | DX: I10 Essential (primary) hypertension (principal) | CPT/HCPCS: 80053; 85025 ==

== ENCOUNTER 2024-07-24 14:50 | Outpatient (CLI) | payer OTHER, SELFPAY ==
--- NOTE | 2024-07-24 15:00 | MM_ITS ---
WS: [id number] BILATERAL 3D TOMOSYNTHESIS DIGITAL SCREENING MAMMOGRAPHY WITH CAD CLINICAL INFORMATION: screening HISTORY: Screening mammogram. No current complaints. COMPARISON: 2021 TECHNIQUE: Bilateral CC and MLO views. FINDINGS: The breasts are composed of heterogeneous fibroglandular density tissue, which can limit the detection of small underlying mass lesions. No suspicious mass, asymmetry, calcifications, or architectural distortion. No evidence of malignancy. Dystrophic calcification LEFT breast. MM/MM [facility] tomosynthesis [id number] IMPRESSION: DENSITY: The breasts are heterogeneously dense, which may obscure small masses. BI-RADS: 2 - Benign FOLLOW UP: 1 Year Follow-up Recommend return to annual screening mammography.
== END 2024-07-24 14:51 | disposition home or self-care (01) ==
PROVIDERS: PCP Family Medicine; Visit Provider Family Medicine
DX: Z12.31 Encounter for screening mammogram for malignant neoplasm of breast (principal); R92.333 Mammographic heterogeneous density, bilateral breasts; R92.1 Mammographic calcification found on diagnostic imaging of breast
CPT/HCPCS: 77063; 77067

== ENCOUNTER → 2024-09-12 07:55 | Outpatient (BNVA) | payer OTHER, SELFPAY | PROVIDERS: PCP Family Medicine; Visit Provider Family Medicine | DX: I10 Essential (primary) hypertension (principal); N85.00 Endometrial hyperplasia, unspecified; N93.8 Other specified abnormal uterine and vaginal bleeding | CPT/HCPCS: 80053; 84443; 85025 ==

== ENCOUNTER → 2024-12-03 14:35 | Outpatient (BNVA) | payer OTHER, SELFPAY | PROVIDERS: PCP Family Medicine; Visit Provider Family Medicine | DX: K76.0 Fatty (change of) liver, not elsewhere classified (principal) | CPT/HCPCS: 80053; 85025 ==

== ENCOUNTER 2024-12-05 07:53 | Outpatient (CLI) | payer OTHER, SELFPAY ==
--- NOTE | 2024-12-05 08:00 | US_ITS ---
WS: [id number] RIGHT UPPER QUADRANT ULTRASOUND HISTORY: continued dyspnea/reduced tidal volume/hepatomegaly? COMPARISON: None available. Liver: 17.4 cm in length. Liver is top normal size with hepatic steatosis. No mass identified. Portal Vein: Normal hepatopetal flow with monophasic waveform. Gallbladder: Normal size gallbladder with stones. No pericholecystic fluid or gallbladder wall thickening. CBD: 0.3 cm Pancreas: Normal size and echogenicity. Right kidney: 10.5 cm in length. Normal size and echogenicity. No hydronephrosis or mass. Aorta and IVC: Unremarkable abdominal aorta and IVC. No ascites. US/US liver [id number] IMPRESSION: 1. Cholelithiasis without acute cholecystitis. 2. Liver is measuring top normal size with mild hepatic steatosis.
== END 2024-12-05 07:54 | disposition home or self-care (01) ==
LOC: RAD 07:54
PROVIDERS: PCP Family Medicine; Visit Provider Family Medicine
DX: K76.0 Fatty (change of) liver, not elsewhere classified (principal)
CPT/HCPCS: 76705